=== PATIENT | female | born 1990 | race Caucasian/White ===

== ENCOUNTER 2021-02-19 18:51 | Inpatient (IN) ==
[2021-02-19] MEDS: LACTATED RINGER'S 1,000 ML IV PRN ×2 (19:20→23:17)
[2021-02-19] MEDS ORDERED: OXYTOCIN 30 UNITS/500 ML BAG IV PRN (19:21)
[2021-02-19] MEDS ORDERED: ePHEDrine sulfate 50 MG/ML AMP ONE (19:30)
[2021-02-19] MEDS ORDERED: fentaNYL citrate 100 MCG/2 ML VIAL ONE (19:30)
[2021-02-19] MEDS ORDERED: BUPIVACAINE 0.25% 30 ML VIAL ONE (19:30)
[2021-02-19] MEDS ORDERED: SODIUM CHLORIDE 0.9% INJ 10 ML VIAL ONE (19:30)
[2021-02-19] MEDS ORDERED: fentaNYL 2MCG/ML ROPIVACAINE 1.25MG/ML 100 ML BAG EPI ONE (19:31)
[2021-02-19 19:49] LABS: Hematocrit (blood only) 33.1 % (37-47); Mean Corpuscular Hemoglobin 27.3 pg (25-34); Mean Corpuscular Hgb Conc 33.2 g/dL (32-36); Mean Corpuscular Volume 82.1 fL (80-100); Platelet Count 181 K/uL (130-400); RDW Coefficient of Variation 14.3 % (11.5-14.5); Red Blood Count 4.03 M/uL (4.2-5.4); White Blood Count 11.38 K/uL (4.8-10.8)
--- NOTE | 2021-02-19 20:15 | History & Physical Report ---
Date of Service February 19, 2021 Assessment & Plan (1) Post term over 40 weeks: (2) Gestational diabetes mellitus: Unclear to me that pt has SROM but offered admission in early labor. Can ambulate but pt feels her pain is too significant and wants early epidural. she is aware that could result in need for pitocin and accepts that as possibility. Admit, labs, iv. fhts categ 1. Admission and Anticipated Discharge Date Admission Date: February 19, 2021 History of Present Illness Chief Complaint: painful contractions. Primary Care Provider: Chema Arreola MD 30yo at 40+wks anastacio presents to L&D for second time with painful contractions. This time she thinks she had a gush of clear fluid about 620pm and then smaller ? leak since. Per nurse the wheelchair was wet and initial nitrazine was positive. Not soaking pads since. Contractions are stronger. She rates them 10/10 but earlier today felt they were 9/10. No significant bleeding. PNC c/b 1. GDM PNL rh pos, ri, gbs neg OBH: g1 GYNH: nl paps, no stds Allergies Allergy/AdvReac Type Severity Reaction Status Date / Time No Known Allergies Allergy Verified 02/18/21 14:39 Home Medications Medication Instructions Recorded Confirmed Type prenat.vits,ervin,[id number] 1 tab PO DAILY 07/09/20 02/19/21 History acetone (urine) test #50 ea 12/23/20 02/18/21 Rx blood sugar diagnostic #150 ea 12/23/20 02/18/21 Rx blood-glucose meter #1 ea 12/23/20 02/18/21 Rx lancets 33 gauge #150 ea 12/23/20 02/18/21 Rx Patient History Medical History (Updated 02/19/21 @ 20:21 by Janelle Shabazz MD, FACOG) History of chicken pox Surgical History S/P wisdom tooth extraction Family History (Updated 07/09/20 @ 09:00 by Natalia Reyes) Grandfather (Maternal) Lymphoma Denies family history of Ovarian cancer Breast cancer Colorectal cancer Social History (Updated 07/09/20 @ 09:02 by Natalia Reyes) Smoking Status: Never smoker Hx Alcohol Use: No Hx Substance Use: No Preferred Language: Slovak Communication Ability: Effective Buggy Man Required: No Beliefs That Will Affect Care: None marital status: marital status details: Juan J Cardoza [phone] Current Living Situation: Spouse Current Living Situation Comment: lives with spouse, dog current occupational status: employed current occupation: [employer] Other Information That Helps Us Care for You: No Feels Safe at Home: Yes Safety Concerns: Feels Safe At This Time Review of Systems as per Subjective / HPI Physical Exam Constitutional: WD/WN, vitals as above Respiratory: normal respiratory effort, lungs clear to auscultation Cardiovascular: Rate/Rhythm: regular rate and regular rhythm Gastrointestinal (Abdomen): soft gravid nt Musculoskeletal: no edema nontender calves Neurologic: grossly normal Psychiatric: A+Ox3, euthymic affect Genitourinary: OB Exam Abdomen: + estimated weight (7.5#) Manual OB Exam: + cervical dilation (2-3), + cervical effacement 80%, + station -2 and + amniotic fluid (? ROM, palpable bag, sse, no pooling, nitrazine equivocal and ferning neg. ) OB Exam Monitor Tracing: + external FHT monitor used (125 mod variability,) and + external uterine monitor used (q2-4) Bedside GABRIEL is 13cm and cephalic. Results & Data ([facility]) Vital Signs (Past 12 Hours) Vital Signs Temp Pulse Resp BP 02/19/21 19:01 98.1 F 91 H 16 137/83 Coding Level of Care Code None Diagnoses Post term over 40 weeks O48.0 Gestational diabetes mellitus O24.419
[2021-02-19] MEDS ORDERED: ePHEDrine sulfate 50 MG/ML AMP IV PRN (20:37)
[2021-02-19] MEDS ORDERED: NALOXONE HCL 0.4 MG/1 ML VIAL/CARP IV PRN (20:37)
[2021-02-19] MEDS ORDERED: fentaNYL 2MCG/ML ROPIVACAINE 1.25MG/ML 100 ML BAG EPI PRN (20:37)
[2021-02-19] MEDS ORDERED: diphenhydrAMINE 50 MG/ML VIAL IV PRN (20:37)
[2021-02-19] MEDS ORDERED: NALOXONE HCL 1 MG in SODIUM CHLORIDE 0.9% 1000ML 1,000 ML IV PRN (20:37)
[2021-02-19] MEDS ORDERED: ONDANSETRON INJ 2 MG/ML 2 ML VIAL IV PRN (20:37)
--- NOTE | 2021-02-19 20:57 | Anesthesiology Consultation ---
Date of Service February 19, 2021 Assessment & Plan Chart Review Chart Review: Patient NOT seen in Pre Admission Testing and Acceptable Risk for Labor Epidural Consults Requested none ASA ASA2 Proposed Anesthesia Anesthesia Type: Labor Epidural Risk / Benefits Reviewed With: PT / POA / Parent / Guardian, Accepts Plan and Informed Consent Obtained History Height/Weight Height: 5 ft 5 in Weight: 88.451 kg Allergies Allergy/AdvReac Type Severity Reaction Status Date / Time No Known Allergies Allergy Verified 02/18/21 14:39 Medications Home Medications Medication Instructions Recorded Confirmed Last Taken prenat.vits,ervin,[id number] 1 tab PO DAILY 07/09/20 02/19/21 02/18/21 acetone (urine) test #50 ea 12/23/20 02/18/21 Unknown blood sugar diagnostic #150 ea 12/23/20 02/18/21 Unknown blood-glucose meter #1 ea 12/23/20 02/18/21 Unknown lancets 33 gauge #150 12/23/20 02/18/21 Unknown Active Medications Generic Name Dose Route Start Last Admin Trade Name Freq PRN Reason Stop Dose Admin Lactated Ringer's 1,000 mls @ 125 mls/hr 02/19/21 19:21 02/19/21 19:50 Lr IV 02/21/21 19:20 125 mls/hr .Q8H PRN Infusion L&D Protocol Protocol Ropivacaine 100 ml 02/19/21 20:37 02/19/21 20:55 Fentanyl 2mcg/Ml Ropivacaine 1.25mg/Ml 100 Ml Bag EPI 02/20/21 20:36 100 ml PRN PRN Administration Pain R/T Labor Protocol Past Medical History Medical History History of chicken pox Exercise / Class Metabolic Activity II 4-5 Yardwork/Stairs/Walk up hill Past Family History Family History Grandfather (Maternal) Lymphoma Denies family history of Ovarian cancer Breast cancer Colorectal cancer Past Surgical History Surgical History S/P wisdom tooth extraction Past Anesthesia History No Hx of Anesthesia Complications and No Family Hx of Anesthesia Complications History of PONV No Hx of PONV and No Hx of Motion Sickness Social History Smoking Status: Never smoker tobacco type: e-cigarettes Hx Alcohol Use: No Hx Substance Use: No substance use type: does not use Physical Exam Vital Signs Last Vital Signs Temp 36.9 C 02/19/21 20:53 Pulse 80 02/19/21 20:55 Resp 16 02/19/21 20:53 BP 122/71 02/19/21 20:54 Pulse Ox 100 02/19/21 20:55 ENMT Mouth: no dentition abnormality Thyromental Distance: > or= 3.5 Finger Breadths Mallampati Class: II Neck normal visual inspection Respiratory normal respiratory effort Auscultation: lungs clear to auscultation bilaterally Cardiovascular Rate/Rhythm: regular rate and regular rhythm Psychiatric Orientation: alert Lab Results Anesthesia Preop Results Results Anesthesia Widget: WBC 11.38 K/uL (4.8-10.8) H 02/19/21 Hgb 11.0 g/dL (12.0-16.0) L 02/19/21 Hct 33.1 % (37-47) L 02/19/21 Plt 181 K/uL (130-400) 02/19/21 POC Glucose 88 mg/dl (70-99) 02/19/21 SARS-CoV-2, RNA, NAAT NEGATIVE (NEGATIVE) 02/19/21 Testing Laboratory Results 02/19/21 19:37 02/19/21 20:38 POC Glucose 88
--- NOTE | 2021-02-19 22:40 | Labor Progress Brief Note ---
Date of Service February 19, 2021 Subjective Reason For Note: Routine Evaluation pt now comfortable. per nurse checked about 1hr ago and 4cm. some fluid, not alot Assessment & Plan (1) Post term over 40 weeks: (2) Gestational diabetes mellitus: will see how arom helps pattern. position change due to variable. expectant management. Admission and Anticipated Discharge Date Admission Date: February 19, 2021 Physical Exam Constitutional: WD/WN, vitals as above Genitourinary: Manual OB Exam: + cervical dilation 5 cm, + cervical effacement 90%, + station -2 and + amniotic fluid (AROM --> large amount of fluid) clear OB Exam Monitor Tracing: + external FHT monitor used (130 mod variability), + external uterine monitor used (q3), + category II and + variable decelerations Results & Data ([facility]) Vital Signs (Past 12 Hours) Vital Signs Temp Pulse Resp BP Pulse Ox 02/19/21 22:35 113 H 98 02/19/21 22:30 86 96 02/19/21 22:29 118 H 91 02/19/21 22:25 81 96 02/19/21 22:23 104 H 112/63 02/19/21 22:20 82 96 02/19/21 22:15 81 95 02/19/21 22:10 81 95 02/19/21 22:08 83 112/59 L 02/19/21 22:06 80 94 02/19/21 22:05 84 96 02/19/21 22:00 75 96 02/19/21 21:55 82 96 02/19/21 21:54 83 120/60 02/19/21 21:50 87 96 02/19/21 21:45 79 95 02/19/21 21:40 73 96 02/19/21 21:38 75 99/55 L 02/19/21 21:35 72 97 02/19/21 21:30 96 H 97 02/19/21 21:25 94 H 98 02/19/21 21:23 93 H 92/46 L 02/19/21 21:20 93 H 97 02/19/21 21:15 80 97 02/19/21 21:10 104 H 100 02/19/21 21:07 96 H 91/52 L 02/19/21 21:05 78 93/46 L 99 02/19/21 21:00 96 H 98 06/26/21 20:58 92 H 115/63 02/19/21 20:56 86 114/64 02/19/21 20:55 80 100 02/19/21 20:54 102 H 122/71 02/19/21 20:53 98.4 F 16 02/19/21 20:52 83 126/73 02/19/21 20:50 93 H 131/79 99 02/19/21 20:45 88 100 02/19/21 20:42 83 93 02/19/21 20:40 93 H 100 02/19/21 19:01 98.1 F 91 H 16 137/83 Coding Level of Care Code None Diagnoses Post term over 40 weeks O48.0 Gestational diabetes mellitus O24.419
[2021-02-19] MEDS ORDERED: CALCIUM CARBONATE 500 MG CHEWABLE TAB PO PRN (23:22)
[2021-02-20] MEDS ORDERED: oxyCODONE/ACETAMINOPHEN 5mg/325mg TAB PO PRN (03:10)
--- NOTE | 2021-02-20 03:13 | Delivery Summary ---
Vaginal Delivery Summary Date of Service February 20, 2021 Vaginal Delivery Summary and 2nd Degree LAC The patient dilated to complete and pushed to deliver a viable male infant Apgars 9 and 9 via over 2nd degree perineal laceration. Thick meconium noted with delivery. Mouth and nose bulb suctioned at perineum. Shoulders and body delivered with ease. was vigorous and crying at . Cord clamped at 30 seconds of life and to maternal abdomen where the cord was then doubly clamped and cut. Placenta delivered spontaneously and intact, three- vessel cord. Hemostasis not achieved with dilute pitocin and uterine massage and drainage of the bladder for approximately 300 cc under sterile conditions. Therefore bimanual massage given and evacuation of clots. Single sweep of uterus with no retained products of conception. 800mg cytotec placed rectally. Cervix and sulci intact. Laceration repaired in routine fashion with 3-0 vicryl. EBL 500 cc. Mother and baby stable recovery. [facility] [place] Vaginal Delivery Charge Vaginal Delivery Codes: 42473 global code for the antepartum, delivery, and post- Delivery Type Details: and 2nd Degree LAC
[2021-02-20] MEDS ORDERED: miSOPROStoL 100 MCG TAB PR ONE (03:15)
[2021-02-20] MEDS ORDERED: BENZOCAINE 20% AER SPR 82.5 GM CAN EXT PRN (04:49)
[2021-02-20] MEDS ORDERED: OXYTOCIN 20 UNITS in LACTATED RINGER'S 1,000 ML IV SCH (04:49)
[2021-02-20] MEDS ORDERED: DIPHTHERIA/TETANUS/PERTUSSIS 0.5 ML SYR/VIAL IM ONE (04:49)
[2021-02-20] MEDS ORDERED: OXYTOCIN 30 UNITS/500 ML BAG IV PRN (04:49)
[2021-02-20] MEDS ORDERED: SUPERCREAM 0.870% 15 GM JAR EXT PRN (04:49)
[2021-02-20] MEDS ORDERED: HYDROCORTISONE ACETATE 25 MG SUPP PR PRN (04:49)
--- NOTE | 2021-02-20 06:14 | Anesthesia Procedure Note ---
Date of Service February 20, 2021 Anesthesia Post Epidural Note Vital Signs Vital Signs: Temp Pulse Resp BP Pulse Ox 36.8 C 104 H 16 108/55 L 93 02/20/21 04:45 02/20/21 06:00 02/20/21 04:45 02/20/21 06:00 02/20/21 02:54 Notes Mental Status: alert / awake / arousable Nausea / Vomiting: adequately controlled Pain: adequately controlled Airway Patency, RR, SpO2: stable & adequate BP & HR: stable & adequate Hydration State: stable & adequate Neuraxial Anesthesia: was administered and sensory block is resolving Anesthetic Complications: no major complications apparent and Pt Satisfied with anesthetic care Epidural: Removed without complications and With tip intact
[2021-02-20] MEDS: IBUPROFEN 600 MG TAB PO PRN ×2 (08:37→15:46)
[2021-02-20] MEDS: DOCUSATE SODIUM 100 MG CAP PO SCH ×2 (08:37→20:41)
[2021-02-20] MEDS: PRENATAL VITAMIN 1 TAB PO SCH (08:37)
[2021-02-20 09:10] LABS: Hemoglobin 9.7 g/dL (12.0-16.0)
[2021-02-21] MEDS: IBUPROFEN 600 MG TAB PO PRN ×4 (01:03→20:31)
--- NOTE | 2021-02-21 07:10 | Obstetrical Progress Note ---
Date of Service February 21, 2021 Assessment & Plan (1) examination following vaginal delivery: stable, doing well . routine care. rh pos, ri, bottle feeding Day #:: 1 Subjective Ambulation: ambulating normally Voiding: no voiding problems Diet Tolerance:: regular diet Lochia:: Small Feeding Type:: bottle feeding no pain issues, doing well. Physical Exam Constitutional WD/WN, vitals as above Respiratory normal respiratory effort, lungs clear to auscultation Cardiovascular Rate/Rhythm: regular rate and regular rhythm Gastrointestinal (Abdomen) Inspection/Auscultation: abdomen normal to inspection Percussion/Palpation: abdomen soft Fundus firm 2cm down Musculoskeletal nt calves no edema Neurologic grossly normal Psychiatric A+Ox3, euthymic affect Results & Data ([facility]) Vital Signs (Past 12 Hours) Vital Signs Temp Pulse Resp BP Pulse Ox 02/20/21 23:11 98.4 F 89 16 113/77 99 02/20/21 19:13 98.2 F 81 18 106/69 98
[2021-02-21] MEDS: DOCUSATE SODIUM 100 MG CAP PO SCH ×2 (08:56→20:31)
[2021-02-21] MEDS: PRENATAL VITAMIN 1 TAB PO SCH (08:56)
[2021-02-21] MEDS: ACETAMINOPHEN 325 MG TAB PO PRN ×2 (11:24→23:20)
[2021-02-22] MEDS: IBUPROFEN 600 MG TAB PO PRN (03:14)
--- NOTE | 2021-02-22 05:43 | Obstetrical Progress Note ---
Date of Service <Isabel Dickerson DO - Last Filed: 02/22/21 06:50> February 22, 2021 Assessment & Plan <Isabel Dickerson DO - Last Filed: 02/22/21 06:50> (1) examination following vaginal delivery: 30 yo mother Hx GDM diet-controlled now day #2 following term . Doing well and without complaints. Normal BSGs. Bottle feeding. Voiding and ambulating. Discharge today. Subjective <Isabel Dickerson DO - Last Filed: 02/22/21 06:50> Ambulation: ambulating normally Voiding: no voiding problems Passing Gas:: Yes Diet Tolerance:: regular diet Lochia:: Small Feeding Type:: bottle feeding 30 yo doing well and without complaints today. Bottle feeding without difficulty. Voiding and ambulating. Review of Systems Constitutional: denies fever, chills, sweats, headache Respiratory: denies SOB, difficulty breathing Cardiac: denies CP, chest palpitations, chest pressure Breast: denies breast pain : denies dysuria Physical Exam <Isabel Dickerson DO - Last Filed: 02/22/21 06:50> General: patient is alert and oriented, in NAD Cardiac: +S1/S2, no murmurs rubs or gallops Respiratory: lungs CTA b/l, no wheezes rales or rhonchi, no increased work of breathing, symmetric chest rise, no respiratory distress Abdomen: soft, NT, +bowel sounds Uterus: uterine fundus firm, palpable below the umbilicus Lower Extremities: no LE edema or swelling, no deep calf pain, Fadia's sign negative b/l Results & Data ([facility]) <Isabel Dickerson DO - Last Filed: 02/22/21 06:50> Vital Signs (Past 12 Hours) Vital Signs Temp Pulse Resp BP Pulse Ox 02/21/21 23:15 37.2 C 66 18 116/75 98 <Estrellita Hdz MD - Last Filed: 02/22/21 07:25> Co-Signing Physician Notes Resident Physician Supervision Note: I interviewed and examined the patient. Discussed with Dr. Dickerson and agree with findings and plan as documented in the note. Any exceptions or clarifications are listed here: PP2, meeting all milestones. Stable for d/c home today Documented By: Estrellita Hdz MD Resident Activity Tracking <Isabel Dickerson, DO - Last Filed: 02/22/21 06:50> Resident Involvement: Resident Care Provided Care Provided: OB Delivery
[2021-02-22] MEDS: PRENATAL VITAMIN 1 TAB PO SCH (07:57)
[2021-02-22] MEDS: DOCUSATE SODIUM 100 MG CAP PO SCH (07:57)
== END 2021-02-22 12:40 | disposition home or self-care (01) | DRG 807 ==
LOC: OPB 18:51 → 4S1 18:52 → 4S2 02-20 06:47
DX: O70.1 Second degree perineal laceration during delivery; O48.0 Post-term pregnancy; O24.429 Gestational diabetes mellitus in childbirth, unspecified control; Z3A.40 40 weeks gestation of pregnancy; Z37.0 Single live birth